=== PATIENT | female | born 1950 | race Caucasian/White ===

== ENCOUNTER 2023-02-22 13:18 | Outpatient (CLI) | payer MEDICARE, BC, SELFPAY | END 2023-02-22 13:19 | disposition home or self-care (01) | PROVIDERS: Visit Provider Family Medicine | DX: R10.9 Unspecified abdominal pain (principal); K57.92 Diverticulitis of intestine, part unspecified, without perforation or abscess without bleeding | CPT/HCPCS: 80053; 82607; 83690 ==

== ENCOUNTER 2023-02-28 09:51 | Outpatient (CLI) | payer MEDICARE, BC, SELFPAY | END 2023-02-28 09:52 | disposition home or self-care (01) | LOC: NFLDREF 03-02 06:09 | PROVIDERS: Visit Provider Family Medicine | DX: D75.89 Other specified diseases of blood and blood-forming organs (principal) | CPT/HCPCS: 82747 ==

== ENCOUNTER 2025-02-25 11:34 | Outpatient (CLI) | payer MEDICARE, BC, SELFPAY | END 2025-02-25 11:35 | disposition home or self-care (01) | PROVIDERS: Visit Provider Physician Assistant Medical | DX: E03.9 Hypothyroidism, unspecified (principal); R53.82 Chronic fatigue, unspecified; G43.909 Migraine, unspecified, not intractable, without status migrainosus; M85.80 Other specified disorders of bone density and structure, unspecified site; Z13.6 Encounter for screening for cardiovascular disorders; Z13.9 Encounter for screening, unspecified | CPT/HCPCS: 80053; 80061; 82306; 82607; 82728; 84443 ==